=== PATIENT | female | born 1970 | race African-American/Black ===

== ENCOUNTER 2016-04-26 13:24 | Emergency (ER) | payer BC ==
[~2016-04-26] VITALS: Ht 170.2 cm; Wt 92.5 kg
[~2016-04-26 13:24] MED LIST: ATARAX,VISTARIL25 MG PO; CEFDINIR300 MG PO; FIORICET 50-301 EACH PO; FIORICET,ESG1 TABLET PO; IMITREX100 MG PO; MOTRIN800 MG PO; MULTIVITAMIN1 EAC1 PO; NORCO 5/3251 TABLET PO; PROMETHAZINE HC25 M1 PO
[2016-04-26] MEDS ORDERED: ALEVE220 M2 PO (14:04)
[2016-04-26 15:33] VITALS: BP 103/72
== END 2016-04-26 15:36 | disposition home or self-care (01) ==
LOC: EME 13:24
DX: G43.909 Migraine, unspecified, not intractable, without status migrainosus (principal); R11.0 Nausea
CPT/HCPCS: 99281; 99284; J1885

== ENCOUNTER 2016-05-22 16:33 | Emergency (ER) | payer BC ==
[~2016-05-22] VITALS: Ht 170.2 cm; Wt 91.0 kg
[~2016-05-22 16:33] MED LIST changes: +ALEVE220 M2 PO
[2016-05-22] MEDS ORDERED: SKELAXIN800 MG PO (18:35)
[2016-05-22] MEDS ORDERED: MOTRIN800 MG PO (18:35)
[2016-05-22] MEDS ORDERED: NORCO 5/3251 TABLET PO (18:35)
[2016-05-22 18:52] VITALS: BP 122/78
== END 2016-05-22 18:53 | disposition home or self-care (01) ==
LOC: EME 16:33
DX: M54.5 Low back pain (principal)
CPT/HCPCS: 99281; 99283; J1885

== ENCOUNTER 2017-03-28 16:41 | Emergency (ER) | payer BC ==
[~2017-03-28] VITALS: Ht 170.2 cm; Wt 91.2 kg
[~2017-03-28 16:41] MED LIST changes: +SKELAXIN800 MG PO
[2017-03-28] MEDS ORDERED: NAPROSYN500 MG PO (21:02)
[2017-03-28] MEDS ORDERED: FLEXERIL10 MG PO (21:02)
[2017-03-28 21:37] VITALS: BP 130/93
== END 2017-03-28 21:38 | disposition home or self-care (01) ==
LOC: EME 16:41
DX: R51 Headache (principal); M62.838 Other muscle spasm
CPT/HCPCS: 99281; 99284; J1200; J1885; J2765

== ENCOUNTER 2017-06-01 12:30 | Emergency (ER) | payer BC ==
[~2017-06-01] VITALS: Ht 170.2 cm; Wt 90.3 kg
[~2017-06-01 12:30] MED LIST changes: +FLEXERIL10 MG PO; +NAPROSYN500 MG PO
[2017-06-01] MEDS ORDERED: FIORICET 50-301 EAC1 PO (17:40)
[2017-06-01] MEDS ORDERED: ZOFRAN4 MG PO (17:40)
[2017-06-01] MEDS ORDERED: TORADOL10 MG PO (17:40)
[2017-06-01 18:03] VITALS: BP 111/83
== END 2017-06-01 18:05 | disposition home or self-care (01) ==
LOC: EME 12:30
DX: R51 Headache (principal); R11.0 Nausea
CPT/HCPCS: 99281; 99285; J0780; J1100; J1885